=== PATIENT | male | born 1980 | race Caucasian/White ===

== ENCOUNTER 2017-11-17 17:53 | Emergency (ER) | payer OTHER ==
[~2017-11-17] VITALS: Ht 170.2 cm; Wt 80.0 kg
[2017-11-17 18:32] VITALS: BP 114/78
== END 2017-11-18 00:03 | disposition left against medical advice (07) ==
LOC: ER 19:28
DX: Z53.21 Procedure and treatment not carried out due to patient leaving prior to being seen by health care provider (principal)